=== PATIENT | female | born 1970 | race Caucasian/White ===

== ENCOUNTER → 2020-07-13 | Outpatient (CLI) | payer MEDICAID ==
[2020-07-13 11:46] LABS: HCT 42.5 % (34.0-46.0); HGB 14.6 gm/dL (11.4-16.0); MCH 28.9 pg (25.0-35.0); MCHC 34.4 g/dL (31.0-37.0); MCV 83.9 fL (80.0-100.0); Mean Platelet Volume 6.7; Platelet Count 254 k/uL (150-450); RBC 5.06 m/uL (3.80-5.40); WBC 7.2 k/uL (3.8-10.6)
[2020-07-13 19:27] LABS: African American GFR (CKD) 86.4 (60.0-200.0); Non-African American GFR(CKD) 74.6 (60.0-200.0); Total Bilirubin 0.4 mg/dL (0.2-1.2)
[2020-07-13 22:01] LABS: Hemoglobin A1C 5.3 % (4.0-6.0)
[2020-07-14 04:44] LABS: Erythrocyte Sedimentation Rate 33 mm/Hr (0-20)
== END | disposition home or self-care (01) ==
LOC: LABWHC1 10:47
DX: E03.9 Hypothyroidism, unspecified (principal); N28.9 Disorder of kidney and ureter, unspecified; R17 Unspecified jaundice; E11.9 Type 2 diabetes mellitus without complications; R53.83 Other fatigue
CPT/HCPCS: 36415; 82150; 82247; 82565; 83036; 83690; 84443; 84450; 84460; 84520; 85027; 85652

== ENCOUNTER 2022-11-07 07:30 | Day surgery (SDC) | payer BC, MEDICAID ==
[~2022-11-07 07:30] MED LIST: LACTATED RINGERS 1,000 ML IV SCH; LIDOCAINE 1% (10MG/ML) FOR IV START INTRADERMA PRN
[2022-11-07 07:50] VITALS: TEMP 97
[2022-11-07] MEDS ORDERED: PROPOFOL 10 MG/ML 20 ML VIAL IV ONE (09:08)
[2022-11-07] MEDS ORDERED: LIDOCAINE 2% INJ 20 MG/ML (2 ML VIAL) ONE (09:08)
--- NOTE | 2022-11-07 09:34 | P.PCN ---
Date of Procedure: 11/07/22 Procedure(s) Performed: Brief history: Patient is a pleasant 52-year-old female scheduled for an elective upper endoscopy as well as colonoscopy as a part of evaluation of epigastric discomfort for the last 1 year duration. She also complains of abdominal bloating. She is scheduled for an upper endoscopy as well as colonoscopy as a part of evaluation of epigastric pain and screening for colon cancer Procedure performed: Esophagogastroduodenoscopy with biopsy Colonoscopy with biopsy. Preoperative diagnosis: Epigastric pain/abdominal bloating Screening for colon cancer Anesthesia: MAC Procedure: After informed consent was obtained from the patient was brought into the endoscopy unit and IV sedation was administered by anesthesia under continuous monitoring. Initially upper endoscopy was done. The Olympus GF 160 video endoscope was inserted inserted into the mouth and esophagus intubated without any difficulty and was gradually advanced into the stomach and duodenum and carefully examined. The bulb and second part of the duodenum appeared normal. The scope was then withdrawn into the stomach adequately insufflated with air and upon careful examination the antrum had mild antral gastritis and biopsies were done from this area. Mucosa of the body, cardia and fundus appeared norm al. The scope was then withdrawn into the esophagus. sliding Hiatal hernia noted The GE junction was located at 40 cm to the incisors. It appeared regular with no erythema erosions or ulcerations. Rest of the esophagus appeared normal. Patient tolerated the procedure well. At this time the patient continued to remain sedation. Initial digital rectal examination was normal. Olympus CF 160 video colonoscope was then inserted into the rectum and gradually advanced to the cecum without any difficulty. Careful examination was performed as the scope was gradually being withdrawn. The prep was fair. In the base of cecum there was a 5 mm polyp that was removed by cold biopsy.. The cecum, ascending colon, transverse colon, descending colon, sigmoid colon and rectum appeared normal. Retroflexion was performed in the rectum and no lesions were noted. Patient tolerated the procedure well. Impression: 1. Upper endoscopy revealed small hiatal hernia and mild antral gastritis 2. Colonoscopy revealed a 5 mm cecal polyp status post cold biopsy and the rest of the colon appeared normal Recommendations: Findings of this examination were discussed with the patient as well as her fa jacoby. She was advised to follow with the biopsy results. Recommend to continue Nexium 20 mg daily to be taken half hour before dinnertime and follow antireflux measures. If the biopsy of the colon polyp reveals adenoma she can have a repeat colonoscopy in 5 years.
[2022-11-07 10:17] VITALS: PULSE 71; RESP 18
[2022-11-07 10:18] VITALS: BP 111/76
== END 2022-11-07 10:51 | disposition home or self-care (01) ==
LOC: ORWHC2ENDO 07:30
PROVIDERS: ATTEND Internal Medicine Gastroenterology
DX: Z12.11 Encounter for screening for malignant neoplasm of colon (principal); K29.50 Unspecified chronic gastritis without bleeding; D12.0 Benign neoplasm of cecum; K44.9 Diaphragmatic hernia without obstruction or gangrene; K21.00 Gastro-esophageal reflux disease with esophagitis, without bleeding; Z79.899 Other long term (current) drug therapy; Z90.710 Acquired absence of both cervix and uterus
CPT/HCPCS: 88305; 45380; 43239; J2704; J2001